=== PATIENT | female | born 2000 | race Two or more races ===

== ENCOUNTER → 2025-04-17 | Outpatient (CLI) | payer OTHER ==
[~2025-04-17] MED LIST: CEPH500C PO
[2025-04-17 14:32] LABS: PLATELET COUNT, AUTOMATED 229 10^3/uL (150-450)
[2025-04-17 15:01] LABS: Trichomonas vaginalis (AMP) NOT DETECTED (NEGATIVE)
[2025-04-17 15:08] LABS: HIV 1&2 SCREEN NEGATIVE (NEGATIVE)
[2025-04-17 15:17] LABS: HEPATITIS C VIRUS ABY INDEX < 0.02 INDEX (<0.8)
[2025-04-17 15:24] LABS: GC DNA AMPLIFICATION NEGATIVE (NEGATIVE)
== END ==
LOC: M PLALAB 10:30
PROVIDERS: ATTEND Advanced Practice Midwife
DX: Z34.02 Encounter for supervision of normal first pregnancy, second trimester (principal); Z3A.00 Weeks of gestation of pregnancy not specified

== ENCOUNTER → 2025-04-17 | Outpatient (REF) | payer MEDICAID, OTHER | LOC: M PLALAB 10:15 | PROVIDERS: ATTEND Advanced Practice Midwife | DX: Z34.02 Encounter for supervision of normal first pregnancy, second trimester (principal); Z53.9 Procedure and treatment not carried out, unspecified reason ==

== ENCOUNTER → 2025-05-11 | Outpatient (CLI) | payer OTHER | LOC: M WHC 07:01 | PROVIDERS: ATTEND Advanced Practice Midwife | DX: Z34.02 Encounter for supervision of normal first pregnancy, second trimester (principal); Z3A.19 19 weeks gestation of pregnancy ==

== ENCOUNTER → 2025-06-14 | Outpatient (CLI) | payer OTHER ==
[2025-06-14 14:40] LABS: PLATELET COUNT, AUTOMATED 221 10^3/uL (150-450)
[2025-06-14 14:42] LABS: GLUCOSE CHALLENGE TEST 1 HOUR 133 MG/DL (LESS THAN 140)
[2025-06-14 15:08] LABS: Trichomonas vaginalis (AMP) NOT DETECTED (NEGATIVE)
[2025-06-14 15:12] LABS: HIV 1&2 SCREEN NEGATIVE (NEGATIVE)
[2025-06-14 15:20] LABS: HEPATITIS C VIRUS ABY INDEX < 0.02 INDEX (<0.8)
[2025-06-14 15:32] LABS: GC DNA AMPLIFICATION NEGATIVE (NEGATIVE)
== END ==
LOC: M PLALAB 10:39
PROVIDERS: ATTEND Nurse Practitioner Family
DX: Z34.80 Encounter for supervision of other normal pregnancy, unspecified trimester (principal)

== ENCOUNTER 2025-08-26 15:55 | Emergency (ER) | payer OTHER ==
[2025-08-26] MEDS ORDERED: ACET-907 PO (16:34)
[2025-08-26] MEDS ORDERED: PRENTAB9 PO (16:35)
== END 2025-08-26 16:09 | disposition admitted as inpatient to this hospital (09) ==
LOC: M ED 15:55
DX: Z53.21 Procedure and treatment not carried out due to patient leaving prior to being seen by health care provider (principal)

== ENCOUNTER 2025-08-26 16:04 | Outpatient (CLI) | payer OTHER ==
[~2025-08-26] VITALS: Ht 152.4 cm; Wt 72.3 kg
[2025-08-26] MEDS ORDERED: LR 1,000 ML IV ONE (16:20)
[2025-08-26] MEDS ORDERED: ACET-907 PO (16:34)
[2025-08-26] MEDS ORDERED: PRENTAB9 PO (16:35)
[2025-08-26] MEDS ORDERED: HOME MED LIST COMPLETE! XX SCH (16:35)
[2025-08-26 16:52] LABS: BASO # 0.1 10^3/uL (0.0-0.2); BASO % 0.3 % (0.0-1.0); EOS # 0.0 10^3/uL (0.0-0.5); EOS % 0.1 % (0.0-3.0); LYMPH # 0.8 10^3/uL (1.5-5.0); LYMPH % 5.1 % (24.0-44.0); MONO # 0.7 10^3/uL (0.0-0.8); MONO % 4.3 % (2.0-8.0); NEUTROPHILS # 14.2 10^3/uL (1.5-8.5); NEUTROPHILS % 89.1 % (36.0-66.0); PLATELET COUNT, AUTOMATED 200 10^3/uL (150-450)
[2025-08-26 17:24] LABS: ALT/SGPT 9 U/L (7.0-40); AST/SGOT 10 U/L (<34); CALCIUM LEVEL 8.1 MG/DL (8.5-10.1); CARBON DIOXIDE LEVEL 19 MMOL/L (20-31); CHLORIDE LEVEL 107 MMOL/L (98-107); CREATININE FOR GFR 0.55 MG/DL (0.55-1.30); GLOMERULAR FILTRATION RATE > 90.0 (>60); POTASSIUM SERUM 4.0 MMOL/L (3.5-5.1); SODIUM LEVEL 137 MMOL/L (136-145)
== END 2025-08-26 18:54 | disposition home or self-care (01) ==
LOC: M LDO 16:04
PROVIDERS: ATTEND Obstetrics & Gynecology
DX: O26.893 Other specified pregnancy related conditions, third trimester (principal); O26.853 Spotting complicating pregnancy, third trimester; O09.33 Supervision of pregnancy with insufficient antenatal care, third trimester; O99.53 Diseases of the respiratory system complicating the puerperium; M54.50 Low back pain, unspecified; J02.9 Acute pharyngitis, unspecified; Z3A.35 35 weeks gestation of pregnancy
CPT/HCPCS: 36415; 59025; 80053; 85025; 87486; 87581; 87633; 87798; G0463

== ENCOUNTER → 2025-09-07 | Outpatient (REF) | payer OTHER ==
[~2025-09-07] MED LIST changes: +ACET-907 PO; +PRENTAB9 PO
== END ==
LOC: M SFHCWAGY 12:57
PROVIDERS: ATTEND Nurse Practitioner Family
DX: O09.33 Supervision of pregnancy with insufficient antenatal care, third trimester (principal); Z3A.37 37 weeks gestation of pregnancy

== ENCOUNTER 2025-09-24 00:30 | Inpatient (IN) | payer OTHER ==
[2025-09-24] VITALS (24 sets, daily range): BP systolic 90–121; BP diastolic 53–83; TEMP 98.6; O2SAT 97–100
[~2025-09-24] VITALS: Ht 152.4 cm; Wt 74.2 kg
[2025-09-24] MEDS ORDERED: HOME MED LIST COMPLETE! XX SCH (00:55)
[2025-09-24] MEDS ORDERED: OXYTOCIN INJ 10UNITS/ML 1ML VIAL IM PRN (01:45)
[2025-09-24] MEDS ORDERED: OXYTOCIN DRIP 30 UNITS in IV 1 EA IV PRN (01:45)
[2025-09-24] MEDS ORDERED: LIDOCAINE 1% MDV 20 ML VIAL INFIL PRN (01:45)
[2025-09-24] MEDS ORDERED: LR 1,000 ML IV SCH (01:45)
[2025-09-24] MEDS ORDERED: METHYLERGONOVINE MALEATE 0.2 MG/ML 1 ML VIAL IM PRN (01:45)
[2025-09-24] MEDS ORDERED: TRANEXAMIC ACID INJection 1,000 MG in NS 100 ML IV PRN (01:45)
[2025-09-24 02:32] LABS: PLATELET COUNT, AUTOMATED 255 10^3/uL (150-450)
[2025-09-24 03:22] LABS: HIV 1&2 SCREEN NEGATIVE (NEGATIVE)
[2025-09-24 03:30] LABS: HEPATITIS C VIRUS ABY INDEX 0.05 INDEX (<0.8)
[2025-09-24] MEDS ORDERED: ONDANSETRON 4MG/2ML VIAL IV PRN ×2 (05:55→10:30)
[2025-09-24] MEDS ORDERED: diphenhydrAMINE 50 MG/ML VIAL IV PRN ×2 (05:55→10:30)
[2025-09-24] MEDS ORDERED: LR 500 ML IV PRN (05:55)
[2025-09-24] MEDS ORDERED: FENTANYL/ROPIVACAINE/NACL BAG 100 ML EPIDURAL SCH (05:55)
[2025-09-24] MEDS ORDERED: NALOXONE INJ 0.4 MG/1 ML VIAL IV PRN ×3 (05:55→10:30)
[2025-09-24] MEDS ORDERED: EPIDURAL/PCA KEYS XX PRN (05:55)
[2025-09-24] MEDS: PRENATAL VITAMINS CHEWABLE TABLET PO SCH (09:00)
[2025-09-24] MEDS ORDERED: OXYTOCIN 30UNITS IN 0.9% NaCl 500ML IV BAG IV ONE (09:08)
[2025-09-24] MEDS ORDERED: LIDOCAINE 2% W/EPINEPHrine 20 ML VIAL **PRES FREE As Ordered ONE (09:10)
[2025-09-24] MEDS: BICITRA 30 ML SOLN UDC PO ONE (09:12)
[2025-09-24] MEDS: AZITHROMYCIN INJ 500 MG, VIAL MATE ADAPTER 1 EACH in NS 250 ML IV ONE (09:13)
[2025-09-24] MEDS: ceFAZolin SODIUM 2 GM in DEXTROSE 5% (D5W) ADV/MINI-BAG 50 ML IV ONE (09:13)
[2025-09-24] MEDS ORDERED: PHENYLephrine 500MCG 5ML (100MCG/ML) SYRINGE As Ordered ONE (10:04)
[2025-09-24] MEDS ORDERED: MORPHINE PRES-FREE INJ 10 MG/10 ML VIAL As Ordered ONE (10:09)
[2025-09-24] MEDS ORDERED: KETOROLAC 30 MG/ML 1 ML VIAL As Ordered ONE (10:11)
[2025-09-24] MEDS ORDERED: dexmedeTOMIDine (4 MCG/ML) 200 MCG/50 ML BTL As Ordered ONE (10:13)
[2025-09-24] MEDS: OXYTOCIN DRIP 30 UNITS in IV 1 EA IV PRN (10:20)
[2025-09-24] MEDS ORDERED: PERCOCET 5MG/325MG TAB PO PRN (10:20)
[2025-09-24] MEDS ORDERED: RHOGAM 300MCG (1500IU) INJ IM SCH (10:20)
[2025-09-24] MEDS ORDERED: MEPERIDINE 25 MG/ML 1 ML VIAL IV PRN (10:30)
[2025-09-24] MEDS: SLF 3 ML SYR IV SCH (10:30)
[2025-09-24] MEDS ORDERED: **NOTE PATIENT COMMENT** MISC XX SCH (10:30)
[2025-09-24 10:33] LABS: CORD GAS ABE A -4.7; CORD GAS HCO3 A 20.6 MMOL/L; CORD GAS O2 SAT A 17.1 %; CORD GAS PCO2 A 39.0 mmHg; CORD GAS PH A 7.341 UNITS; CORD GAS PO2 A 10.6 mmHg; CORD GAS SBC A 18.8 MMOL/L; CORD GAS TCO2 A 21.8 MMOL/L
[2025-09-24 10:37] LABS: CORD GAS ABE V -3.5; CORD GAS HCO3 V 21.2 MMOL/L; CORD GAS O2 SAT V 47.7 %; CORD GAS PCO2 V 37.4 mmHg; CORD GAS PH V 7.372 UNITS; CORD GAS PO2 V 19.7 mmHg; CORD GAS SBC V 20.4 MMOL/L; CORD GAS TCO2 V 22.4 MMOL/L
[2025-09-24] MEDS: LR 1,000 ML IV SCH (11:01)
[2025-09-24] MEDS: OXYTOCIN DRIP 30 UNITS in IV 1 EA IV SCH (11:06)
[2025-09-24] MEDS: ePHEDrine INJ 50 MG/ML 1 ML VIAL IV STA (11:09)
[2025-09-24] MEDS: KETOROLAC 30 MG/ML 1 ML VIAL IV SCH (15:37)
[2025-09-24] MEDS: ONDANSETRON 4MG/2ML VIAL IV PRN (17:39)
[2025-09-24] MEDS ORDERED: IBUP80TA PO (18:47)
[2025-09-24] MEDS ORDERED: OXYC1TAB23 PO (18:47)
[2025-09-25 02:00] VITALS: BP 109/56; O2SAT 100
[2025-09-25 06:00] VITALS: BP 98/55; O2SAT 99
[2025-09-25] MEDS: SIMETHICONE 80MG CHEW TAB PO PRN (09:18)
[2025-09-25 10:00] VITALS: BP 91/56; O2SAT 99
[2025-09-25 11:21] LABS: PLATELET COUNT, AUTOMATED 203 10^3/uL (150-450)
[2025-09-25 12:40] VITALS: BP 94/50; O2SAT 100
[2025-09-25] MEDS: IBUPROFEN 800 MG TAB PO SCH (12:42)
[2025-09-25 18:29] VITALS: BP 102/57; O2SAT 98
[2025-09-25 22:00] VITALS: BP 106/58; O2SAT 100
[2025-09-26] MEDS: PERCOCET 5MG/325MG TAB PO PRN (00:42)
[2025-09-26 02:00] VITALS: BP 109/62; O2SAT 98
[2025-09-26 04:13] LABS: PLATELET COUNT, AUTOMATED 212 10^3/uL (150-450)
[2025-09-26 06:00] VITALS: BP 111/61; O2SAT 98
[2025-09-26] MEDS: MEASLES,MUMPS,RUBELLA VACCINE INJ (MMR-II) SC.IMMUN ONE (07:18)
[2025-09-26 10:00] VITALS: BP 102/56; O2SAT 98
[2025-09-26 10:10] VITALS: BP 103/60; O2SAT 98
[2025-09-26 14:00] VITALS: BP 104/59; O2SAT 14
== END 2025-09-26 15:37 | disposition home or self-care (01) | DRG 540 ==
LOC: M LDO 00:30 → M LDI 01:08 → M OBS 12:10
PROVIDERS: ADMIT Obstetrics & Gynecology; ATTEND Obstetrics & Gynecology
PROC: 10D00Z1 Extraction of Products of Conception, Low, Open Approach (ICD-10-PCS; principal; 2025-09-24 08:55)
DX: O77.8 Labor and delivery complicated by other evidence of fetal stress (principal); Z37.0 Single live birth; Z3A.39 39 weeks gestation of pregnancy